=== PATIENT | male | born 1975 | race Two or more races ===

== ENCOUNTER 2023-10-18 10:43 | Emergency (ER) | payer MEDICAID ==
[~2023-10-18] VITALS: Ht 167.6 cm; Wt 76.8 kg
[2023-10-18 10:47] VITALS: BP 135/94; TEMP 98.3
[2023-10-18 11:43] VITALS: PULSE 94; RESP 16
[2023-10-18] MEDS: KETOROLAC TROMETHAMINE 30 MG/ML VIAL IM ONE (12:03)
[2023-10-18] MEDS: LIDOCAINE 5% TRANSDERMAL PATCH TD ONE (12:03)
[2023-10-18] MEDS ORDERED: IBUP-1492 PO (12:03)
[2023-10-18] MEDS ORDERED: CYCL-448 PO (12:03)
== END 2023-10-18 12:15 | disposition home or self-care (01) ==
LOC: EMS 10:43
DX: M62.830 Muscle spasm of back (principal); G89.29 Other chronic pain; M54.50 Low back pain, unspecified; F17.210 Nicotine dependence, cigarettes, uncomplicated; Z88.1 Allergy status to other antibiotic agents
CPT/HCPCS: 99283; 96372; J1885